=== PATIENT | female | born 1985 | race Caucasian/White ===

== ENCOUNTER 2017-04-26 20:45 | Emergency (ER) | payer OTHER ==
[~2017-04-26] VITALS: Ht 167.6 cm; Wt 113.4 kg
[~2017-04-26 20:45] MED LIST: BIRTH CONTROL; ZOFRAN4 MG PO
[2017-04-26 21:12] LABS: URINE BILIRUBIN NEGATIVE (Negative); URINE BLOOD NEGATIVE (Negative); URINE CLARITY CLEAR; URINE COLOR YELLOW; URINE GLUCOSE-RANDOM NEGATIVE (Negative); URINE KETONES NEGATIVE (Negative); URINE LEUKOCYTES NEGATIVE (Negative); URINE NITRITE NEGATIVE (Negative); URINE PROTEIN NEGATIVE (Negative); URINE UROBILINOGEN 0.2 E.U./dl (0.2-1.0)
[2017-04-26 21:19] LABS: AMP/METHAMP Negative (Negative); BARBITURATES Negative (Negative); BENZODIAZEPINES Negative (Negative); COCAINE Negative (Negative); METHADONE Negative (Negative); OPIATES Negative (Negative); PCP Negative (Negative); THC POSITIVE (Negative)
[2017-04-26 21:24] LABS: HEMOGLOBIN 14.1 gm/dL (12.0-15.0); MCH 27.6 pg (26.0-34.0); MCHC 33.6 g/dL (28.0-37.0); MCV 82.3 fL (80.0-100.0); MPV 8.8 fl. (7.2-11.1); RBC 5.11 mil/uL (4.20-5.00); RDW-CV 13.1 % (10.5-14.5); WBC 10.6 thou/uL (4.0-11.0)
[2017-04-26 21:32] LABS: CALCIUM 8.6 mg/dL (8.5-10.1); POTASSIUM 3.5 mmol/L (3.5-5.1)
[2017-04-26 21:36] LABS: ALBUMIN 3.6 g/dL (3.4-5.0); TOTAL BILIRUBIN 0.6 mg/dL (<0.1-1.0); TOTAL PROTEIN 7.2 g/dL (6.4-8.2)
[2017-04-26 21:41] LABS: SALICYLATE < 2.8 mg/dL (2.8-20.0)
[2017-04-26 21:42] LABS: ACETAMINOPHEN < 2 ug/mL (10-30); ALCOHOL < 10 mg/dL (<10)
[2017-04-26 22:15] VITALS: BP 123/73
--- NOTE | 2017-04-27 13:07 | EKG ---
[place] [address] ELECTROCARDIOGRAM REPORT Name: ML GALARZA Room: [facility]#: [id number] Admission: 04/26/17 Attend Phys: Discharge: 04/26/17 Date of : 87 Report #: [id number] THIS REPORT FOR: //name// [facility] ED Test Date: 2017-04-26 Test Time: 21:08:43 Pat Name: ML GALARZA Department: Room: Gender: F Gre[employer] Helper: DEIDRA : [id number] Requested By: Delmy Yi Order Number: [id number] MD: Vinny Morin Measurements Intervals [place] Rate: 77 P: 63 DC: 128 QRS: 7 QRSD: 105 T: 35 QT: 412 QTc: 467 Interpretive Statements Sinus rhythm Probable left atrial enlargement Low voltage, precordial leads No previous ECG available for comparison Electronically Signed On 04-27-2017 13:07:10 [employer] by Vinny Morin [email or web address] <ELECTRONICALLY SIGNED> By: Vinny Morin MD, [facility] 04/27/17 1307 [id number] 07 Vinny Morin MD, FACC /EPI
== END 2017-04-26 22:15 | disposition home or self-care (01) ==
LOC: M.ERS 20:45
PROVIDERS: Personal Emergency Response Attendant
DX: F12.929 Cannabis use, unspecified with intoxication, unspecified (principal)